=== PATIENT | male | born 1930 | race Caucasian/White ===

== ENCOUNTER → 2017-09-29 | Outpatient (REF) ==
[2017-09-29 17:58] LABS: APPEARANCE, CSF CLEAR (CLEAR); COLOR, CSF COLORLESS (COLORLESS); CSF TUBE# CELL CNT TUBE 1
[2017-09-29 17:59] LABS: APPEARANCE, CSF CLEAR (CLEAR); COLOR, CSF COLORLESS (COLORLESS); CSF DIFF IF INDICATED? NO (NO); CSF TUBE# CELL CNT TUBE 3
== END ==
LOC: M LAB REF 17:33
PROVIDERS: ATTEND Emergency Medicine
DX: R51 Headache (principal)